=== PATIENT | male | born 1950 | race African-American/Black ===

== ENCOUNTER 2023-11-08 14:13 | Inpatient (IN) ==
--- NOTE | 2023-11-08 14:28 | Emergency Department Note ---
ED Visit Note I personally performed a history and examined the patient in conjunction with Dr. Horner. Additional information regarding the history, physical, assessment, and plan were discussed with supervising attending physician and are noted in their ED visit note. . Resident Activity Tracking Resident Involvement: Resident Care Provided Care Provided: [facility] Medicine
[2023-11-08] MEDS: SODIUM CHLORIDE 0.9% 500 ML IV ONE (15:16)
--- NOTE | 2023-11-08 15:16 | Emergency Department Note ---
Impression & Plan Dizziness, Near syncope, Acute hypotension, Bradycardia, Abnormal EKG ED Provider Note NAME: HANNAH SEGUNDO AGE: 73 SEX: M : 1950 ARRIVES VIA: Walk-In INFORMANT: Patient, the patient's family member ED PROVIDER(S): Davie Horner DO CHIEF COMPLAINT: Weakness HPI: The patient is a 73-year-old male who presented to the emergency department for an evaluation of weakness. The patient describes weakness and he feels that he may pass out. He feels lightheaded and dizzy. He notices this when his blood pressure drops. He is on multiple blood pressure medication. The patient states that has been taking his blood pressures appropriately. He denies having any dark stools or bloody stools. He denies having any chest pain or difficulty breathing. He has had no recent changes to his medications. He does live at home alone. He recently lost his significant other. ROS: See above HPI for pertinent positives & negatives. A total of 10 systems reviewed and were otherwise negative. PAST MEDICAL HISTORY: See Below PAST SURGICAL HISTORY: See Below FAMILY HISTORY: See Below SOCIAL HISTORY: See Below HOME MEDICATIONS: See Below ALLERGIES: See Below VITALS: See Below PHYSICAL EXAMINATION: GENERAL: Patient is awake alert in no acute distress patient is resting comfortably and showing no signs of anxiety EYES: The conjunctivae are clear. The pupils are round and reactive. EARS, NOSE, MOUTH AND THROAT: The nose is without any evidence of any deformity. NECK: The neck is nontender and supple. RESPIRATORY: Normal respiratory effort is noted there is no evidence of wheezing rhonchi or rales CARDIOVASCULAR: Regular rate and rhythm noted there no murmurs rubs or gallops normal S1 normal S2. GASTROINTESTINAL: The abdomen is soft. Abdomen is nontender. MUSCULOSKELETAL/EXTREMITIES: There is no evidence of gross deformity full range of motion is noted in the hips and shoulders. SKIN: There is no obvious evidence of any rash. There are no petechiae, pallor or cyanosis noted. NEUROLOGIC: Patient is awake alert and oriented x3 strength is symmetric patellar reflexes are 2+ bilaterally MEDICAL DECISION MAKING: The patient is a 73-year-old male who presented to the emergency department for an evaluation of near syncope and dizziness. The patient does have a history of cardiac issues in the past. He did also takes multiple blood pressure medications. I discussed the patient's laboratory and radiographic studies with him. He was treated with a small fluid bolus in the emergency department. He had no episodes of hypotension in the emergency department but he did have episodes of bradycardia with escape beats. I was concerned this may represent a problem with his beta-sergio. For this reason I discussed his condition with the on-call [facility] hospitalist. They have agreed to evaluate the patient in the emergency department for further management and disposition. Triage Nursing notes reviewed. Prior medical records reviewed Vital Signs: reviewed and remarkable for elevated blood pressure and bradycardia. Differential diagnosis: Infection, dehydration, metabolic abnormality, hypo/hyperglycemia, electrolyte disturbance, anemia, hypoxia, cardiac sources, intracerebral event, toxicologic, neurologic, as well as other pathologies. ER treatment provided: See below Diagnostics interpreted by me: ECG: EKG was obtained in the emergency department. My interpretation is sinus bradycardia 58 bpm. There is no ectopy. Inferior and lateral ST depressions were noted. This was compared to a tracing from November 27, 2017. The ST segment depressions are new compared to the previous tracing otherwise no changes were noted. Cardiac Monitoring: An order was placed for continuous cardiac monitoring. The monitor shows a rate of 58 bpm with ectopic atrial beats. Laboratory studies: As stated above and show below. Imaging studies: See below. Radiographic imaging was reviewed by myself Consultation(s): I discussed this case with Dr. Luna who is on-call for the [facility]. Past Med/Surg History Problem List Abnormal EKG (Acute) Bradycardia (Acute) Acute hypotension (Acute) Near syncope (Acute) Dizziness (Acute) Lung nodule seen on imaging study Nonsustained ventricular tachycardia Syncope Monoallelic mutation of SCN5A gene Dyspnea on exertion History of arterial bypass of lower extremity (Acute) PAD (peripheral artery disease) (Acute) Type 2 diabetes mellitus Dyslipidemia Hypertension S/P coronary artery stent placement CAD (coronary artery disease), [place] coronary artery Medical History Prostate cancer (~2010) "Rising PSA, presenting PSA 4.2. Clinical stage T1c Status post ultrasound-guided biopsies revealing adenocarcinoma, biopsy stage T2c [place] grade 3+4 Status post 8 months of hormonal suppression Status post completion of radiation therapy utilizing IMRT/IGRT completed 07/04/2011 received 7900 cGy" Social History Smoking Status: Never smoker Hx Alcohol Use: Yes Hx Substance Use: No Preferred Language: Yoruba Communication Ability: Effective Information Lead Required: No Beliefs That Will Affect Care: None Current Living Situation: Alone Feels Safe at Home: Yes Assistive Devices: None Allergies Allergies Allergy/AdvReac Type Severity Reaction Status Date / Time amiloride Allergy Nausea Verified 09/19/23 10:43 Home Meds Home Medications Medication Instructions Recorded Confirmed aspirin 81 mg tablet 81 mg PO DAILY 11/19/18 11/08/23 finasteride 5 mg tablet 5 mg PO DAILY 11/19/18 11/08/23 metformin 500 mg tablet 500 mg PO BID #180 tabs 11/19/18 11/08/23 tamsulosin 0.4 mg capsule 0.4 mg PO HS 11/19/18 11/08/23 cholecalciferol (vitamin D3) 50 2,000 units PO DAILY 12/12/18 11/08/23 mcg (2,000 unit) tablet cyanocobalamin (vitamin B-12) 500 500 mcg PO DAILY 08/11/20 11/08/23 mcg tablet pyridoxine (vitamin B6) 100 mg 100 mg PO DAILY 08/11/20 11/08/23 tablet potassium citrate 10 mEq (1,080 10 meq PO DAILY #60 tabs 02/14/21 11/08/23 mg) tablet,extended release sildenafil 100 mg tablet 100 mg PO DAILY PRN Erectile 02/14/21 11/08/23 Dysfunction gabapentin 100 mg capsule 200 mg PO TID 08/17/21 11/08/23 Previous Rx's Medication Instructions Recorded clopidogrel 75 mg tablet 75 mg PO QAM #90 tabs 11/23/22 nitroglycerin 0.4 mg sublingual 0.4 mg sublingual Q5M PRN chest 06/18/23 tablet pain #25 tabs atorvastatin 80 mg tablet 80 mg PO DAILY #90 tabs 08/12/23 metoprolol tartrate 100 mg tablet 100 mg PO BID #180 tabs 09/19/23 amlodipine 2.5 mg tablet 5 mg (2 x 2.5 mg) PO DAILY #90 tabs 10/21/23 Results & Data (ED) Vital Signs Vital Signs - 24 hr 11/08/23 14:16 11/08/23 14:50 11/08/23 15:00 Temperature Temperature Source Temporal Artery Scan Pulse Rate - Lying Pulse Rate - Sitting Pulse Rate - Standing Pulse Rate 54 L 55 L 54 L Pulse Rate [Left Finger] Pulse Rhythm Regular Pulse Rhythm [Left Finger] Pulse Strength [Left Finger] Respiratory Rate 16 16 Respiratory Effort / Characteristics Non-Labored Spontaneous Respiratory Depth Normal Respiratory Pattern Blood Pressure - Lying Blood Pressure - Sitting Blood Pressure- Standing Blood Pressure 117/62 Blood Pressure [Left Arm] Blood Pressure Mean 80 Blood Pressure Mean [Left Arm] Blood Pressure Position [Left Arm] Pulse Oximetry 98 98 Oxygen Delivery Method Room Air Room Air Sepsis Recent Fever Within 48 Hours No Sepsis New/Unexplained Change in Mental Status No Sepsis Action Taken by Nursing No Action Required 11/08/23 15:14 11/08/23 15:28 11/08/23 16:15 Temperature 36.8 C Temperature Source Oral Pulse Rate - Lying 56 L Pulse Rate - Sitting 59 L Pulse Rate - Standing 58 L Pulse Rate Pulse Rate [Left Finger] 70 Pulse Rhythm Pulse Rhythm [Left Finger] Pulse Strength [Left Finger] Respiratory Rate 18 Respiratory Effort / Characteristics Respiratory Depth Respiratory Pattern Blood Pressure - Lying 139/69 Blood Pressure - Sitting 129/61 Blood Pressure- Standing 136/66 Blood Pressure Blood Pressure [Left Arm] 150/74 H Blood Pressure Mean Blood Pressure Mean [Left Arm] 99 Blood Pressure Position [Left Arm] Pulse Oximetry 98 Oxygen Delivery Method Sepsis Recent Fever Within 48 Hours Sepsis New/Unexplained Change in Mental Status Sepsis Action Taken by Nursing 11/08/23 17:24 11/08/23 18:28 Temperature Temperature Source Pulse Rate - Lying Pulse Rate - Sitting Pulse Rate - Standing Pulse Rate 62 Pulse Rate [Left Finger] 76 Pulse Rhythm Pulse Rhythm [Left Finger] Regular Pulse Strength [Left Finger] Normal Respiratory Rate 16 Respiratory Effort / Characteristics Non-Labored Spontaneous Respiratory Depth Normal Respiratory Pattern Regular Blood Pressure - Lying Blood Pressure - Sitting Blood Pressure- Standing Blood Pressure Blood Pressure [Left Arm] 142/82 H Blood Pressure Mean Blood Pressure Mean [Left Arm] 102 Blood Pressure Position [Left Arm] Sitting Pulse Oximetry 98 Oxygen Delivery Method Room Air Sepsis Recent Fever Within 48 Hours Sepsis New/Unexplained Change in Mental Status Sepsis Action Taken by Long Term Medications Current Medication List: was personally reviewed by me Laboratory Data Attestation: I reviewed the patient's lab results. 11/08/23 15:05 11/08/23 15:05 Lab Results 11/08/23 11/08/23 Range/Units 15:05 15:50 WBC 4.66 L (4.8-10.8) K/ul RBC 4.19 L (4.70-6.10) M/uL Hgb 11.7 L (14.0-18.0) g/dl Hct 35.7 L (42.0-52.0) % MCV 85.2 (80.0-100.0) fL MCH 27.9 (25.0-34.0) pg MCHC 32.8 (32.0-36.0) g/dL RDW Std Deviation 46.4 H (36.4-46.3) fL RDW Coeff of Shantel 14.9 H (11.5-14.5) % Plt Count 150 (130-400) K/uL MPV 11.5 (9.4-12.4) fL Immature Gran % (Auto) 0.2 % Neut % (Auto) 45.8 % Lymph % (Auto) 38.4 % Davis % (Auto) 12.2 % Eos % (Auto) 2.8 % Baso % (Auto) 0.6 % Neut # (Auto) 2.13 (1.40-6.50) K/uL Lymph # (Auto) 1.79 (1.20-3.40) K/uL Davis # (Auto) 0.57 (0.11-0.59) K/uL Eos # (Auto) 0.13 (0.00-0.50) K/uL Baso # (Auto) 0.03 (0.00-0.20) K/uL Immature Gran # (Auto) 0.01 (0.01-0.20) K/uL Sodium 137 (136-145) mmol/L Potassium 4.0 (3.5-5.1) mmol/L Chloride 104 (98-107) mmol/L Carbon Dioxide 28 (21-32) mmol/L Anion Gap 5 (3-11) BUN 7 (6-23) mg/dl Creatinine 0.99 (0.6-1.4) mg/dl Est Cr Clr Drug Dosing 76.6 ml/min Est GFR ( Amer) 87.8 ml/min Est GFR (Non-Af Amer) 75.8 ml/min BUN/Creatinine Ratio 7.1 L (10-20) Glucose 133 H (70-99(Fasting)) mg/dl Lactate 1.5 (0.4-2.0) mmol/L Calcium 9.3 (8.6-10.3) mg/dl Magnesium 2.0 (1.7-2.4) mg/dl Total Bilirubin 0.8 (0.2-1.0) mg/dl AST 14 (13-39) U/L ALT 17 (7-52) U/L Alkaline Phosphatase 41 (34-104) U/L Troponin I High Sens 5.4 (0-20) pg/ml Total Protein 6.8 (6.0-8.3) gm/dl Albumin 3.8 (3.4-5.0) gm/dl Globulin 3.0 (2.5-4.0) gm/dl Albumin/Globulin Ratio 1.3 (0.9-2) Procalcitonin < 0.02 (0-0.5) ng/ml Urine Color Yellow Urine Appearance Clear (Clear) Urine pH 5.5 (4.5-7.5) Ur Specific [place] 1.013 (1.000-1.030) Urine Protein Negative (Negative) Urine Glucose (UA) Negative (Negative) Urine Ketones Negative (Negative) Urine Blood Negative (Negative) Urine Nitrite Negative (Negative) Urine Bilirubin Negative (Negative) Urine Urobilinogen Negative (Negative) Ur Leukocyte Esterase Negative (Negative) Administered Medications Discontinued Medications Sodium Chloride (Nss) 500 mls @ 999 mls/hr IV .Q31M ONE Stop: 11/08/23 15:27 Last Infusion: 11/08/23 15:30 Dose: Infused Documented By: Admin: 11/08/23 15:16 Dose: 999 mls/hr Documented By: LILIANA Imaging Data Attestation: I personally reviewed and interpreted this imaging study as follows: My Impression: 1 view chest x-ray was obtained in the emergency department. My interpretation is no free air or definite infiltrate, final report below. Radiologist's Impression: Chest X-Ray 11/08/23 14:45 XR chest 1V portable HISTORY: Sepsis workup COMPARISON: Chest CT 08/09/2023. FINDINGS: No pneumothorax. No pleural effusions. The cardiac silhouette remains mildly enlarged. There is mild interstitial thickening again noted which is likely chronic. No new focal lung consolidations to suggest a pneumonia. No evidence for pulmonary edema. The suspicious right upper lobe nodule is not well visualized on this study. IMPRESSION: 1. No focal lung consolidations to suggest a pneumonia. 2. Stable cardiomegaly and mild interstitial thickening. 3. The patient's known suspicious right upper lobe nodule is is not well visualized on this modality. ACT 112: Negative or not required by law. Electronically signed by: Heron Booker M.D. 11/08/2023 3:35 PM Discharge Plan Visit Data Chief Complaint: Hypotension Stated Complaint: HYPOTENSION ED Provider: Davie Horner ED Midlevel Provider: Comfort Vincent Discharge Problem: Dizziness, Near syncope, Acute hypotension, Bradycardia, Abnormal EKG Patient Disposition: Being Evaluated by Hospitalist Forms Stand Alone Forms: My [facility] Prescriptions Prescriptions: No Action clopidogrel 75 mg tablet 75 mg PO QAM Qty: 90 3RF nitroglycerin 0.4 mg tablet, sublingual 0.4 mg SL Q5M PRN (Reason: chest pain) Qty: 25 3RF atorvastatin 80 mg tablet 80 mg PO DAILY Qty: 90 3RF amlodipine 2.5 mg tablet 5 mg PO DAILY Qty: 90 3RF aspirin 81 mg tablet 81 mg PO DAILY finasteride 5 mg tablet 5 mg PO DAILY tamsulosin 0.4 mg capsule 0.4 mg PO HS metformin 500 mg tablet 500 mg PO BID Qty: 180 cholecalciferol (vitamin D3) 2,000 unit tablet 2,000 units PO DAILY cyanocobalamin (vitamin B-12) 500 mcg tablet 500 mcg PO DAILY pyridoxine (vitamin B6) 100 mg tablet 100 mg PO DAILY potassium citrate 10 mEq (1,080 mg) tablet extended release 10 meq PO DAILY Qty: 60 sildenafil 100 mg tablet 100 mg PO DAILY PRN (Reason: Erectile Dysfunction) gabapentin 100 mg capsule 200 mg PO TID metoprolol tartrate 100 mg tablet 100 mg PO BID Qty: 180 3RF Referrals Referrals: Gertrude Alvarez MD [Primary Care Provider] -
[2023-11-08 15:31] LABS: Basophils # (auto) 0.03 K/uL (0.00-0.20); Basophils % (auto) 0.6 %; Eosinophils # (auto) 0.13 K/uL (0.00-0.50); Eosinophils % (auto) 2.8 %; Hematocrit (blood only) 35.7 % (42.0-52.0); Hemoglobin 11.7 g/dl (14.0-18.0); Immature Granulocytes # (auto) 0.01 K/uL (0.01-0.20); Immature Granulocytes % (auto) 0.2 %; Lymphocytes # (auto) 1.79 K/uL (1.20-3.40); Lymphocytes % (auto) 38.4 %; Mean Corpuscular Hemoglobin 27.9 pg (25.0-34.0); Mean Corpuscular Hgb Conc 32.8 g/dL (32.0-36.0); Mean Corpuscular Volume 85.2 fL (80.0-100.0); Mean Platelet Volume 11.5 fL (9.4-12.4); Monocytes # (auto) 0.57 K/uL (0.11-0.59); Monocytes % (auto) 12.2 %; Neutrophils # (auto) 2.13 K/uL (1.40-6.50); Neutrophils % (auto) 45.8 %; Platelet Count 150 K/uL (130-400); RDW Coefficient of Variation 14.9 % (11.5-14.5); RDW Standard Deviation 46.4 fL (36.4-46.3); Red Blood Count 4.19 M/uL (4.70-6.10); White Blood Count 4.66 K/ul (4.8-10.8)
--- NOTE | 2023-11-08 15:34 | Electrocardiogram Report ---
Test Reason : Blood Pressure : */* mmHG Vent. Rate : 58 BPM Atrial Rate : 58 BPM P-R Int : 184 ms QRS Dur : 100 ms QT Int : 422 ms P-R-T Axes : 57 35 -4 degrees QTcB Int : 414 ms Sinus bradycardia Septal infarct , age undetermined Abnormal ECG When compared with ECG of 27-Jun-2023 11:14, (unconfirmed) Questionable change in QRS duration Septal infarct is now Present Confirmed by Davie Mcintosh ([id number]) on 11/08/2023 3:33:54 PM Referred By: Confirmed By: Davie Mcintosh
--- NOTE | 2023-11-08 15:37 | XRay Report ---
XR chest 1V portable HISTORY: Sepsis workup COMPARISON: Chest CT 08/09/2023. FINDINGS: No pneumothorax. No pleural effusions. The cardiac silhouette remains mildly enlarged. Ther e is mild interstitial thickening again noted which is likely chronic. No new focal lung consolidatio ns to suggest a pneumonia. No evidence for pulmonary edema. The suspicious right upper lobe nodule is not well visualized on this study. IMPRESSION: 1. No focal lung consolidations to suggest a pneumonia. 2. Stable cardiomegaly and mild interstitial thickening. 3. The patient's known suspicious right upper lobe nodule is is not well visualized on this modality. ACT 112: Negative or not required by law. Electronically signed by: Heron Booker M.D. 11/08/2023 3:35 PM
[2023-11-08 15:46] LABS: Albumin Globulin Ratio 1.3 (0.9-2); Albumin Level 3.8 gm/dl (3.4-5.0); BUN Creatinine Ratio 7.1 (10-20); Bilirubin,Total 0.8 mg/dl (0.2-1.0); Calcium 9.3 mg/dl (8.6-10.3); Creatinine Clr Calc Pharmacy 76.6 ml/min; Est GFR (African American) 87.8 ml/min; Est GFR (Non-African American) 75.8 ml/min; Total Protein 6.8 gm/dl (6.0-8.3)
[2023-11-08 15:53] LABS: Troponin I High Sensitivity 5.4 pg/ml (0-20)
[2023-11-08 16:11] LABS: Appearance Urine Clear (Clear); Bilirubin Urine Negative (Negative); Blood Urine Negative (Negative); Color Urine Yellow; Glucose Urine UA Negative (Negative); Ketones Urine Negative (Negative); Leukocyte Esterase Urine Negative (Negative); Nitrite Urine Negative (Negative); Protein Urine Negative (Negative); Specific Gravity Urine 1.013 (1.000-1.030); Urobilinogen Urine Negative (Negative); pH Urine 5.5 (4.5-7.5)
--- NOTE | 2023-11-08 17:49 | History & Physical Report ---
Date of Service November 08, 2023 Assessment & Plan (1) Syncope: Plan: Presyncope, hypotension Patient has had labile hypo-/hypertension as an outpatient. Small up titration of his medications going from amlodipine 2.5 to 5 mg, and shifting between 250-200 total daily dose of metoprolol have caused him to either be hypotensive less than 100, or hypertensive more than 180. 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 Cardiac cath 2018: PCI to mid LAD with 2 overlapping JAIME event monitor: NSVT up to 15 beats, rare junctional escape beats and brief junctional rhythm, no high-grade AV block. 2 episodes of lightheadedness which occurred during sinus bradycardia. Last echo 06/2023, EF 60 to 65%. Small pericardial effusion without evidence of tamponade 06/27/2023 amlodipine and metoprolol were dose reduced due to junctional bradycardia. (MTP 250mg TDD --> 100mg BID) and amlodipine 5mg -->2.5mg then back to 5 for hypertension Patient denies recent orthopnea except for in the past day While in the ER bradycardic, hypotensive which normalized following fluids. While on telemetry has had a intermittent junctional rhythm Troponin is normal Average blood pressure looks well controlled on his home log generally 110-130; however he is bradycardic in the 50s periodically and he has intermittently been in junctional rhythm while on ER telemetry.? Whether his hypotensive episodes are from transient bradycardia/junctional rhythm rather than hypertension especially given large swings with relatively small changes to his regimen. Will admit to PCU overnight, and review telemetry in the morning to see if any low blood pressure events correlate with bradycardia/junctional events metoprolol held for junctional rhythm/bradycardia. Cardiology consulted given complex history Patient has a history of SCN 5 gene abnormality which can be associated with isolated AV conduction defect/long QT/dilated cardiomyopathy/early repolarization. He does not show any signs [place] on EKG, last echo was without significant cardiomyopathy, he did not have any childhood cardiac problems, QT is not prolonged. This gene testing was part of a volunteer study and was not obtained for any particular symptomatology Also ATTR gene positive/increases for amyloidosis. Echo/07/16: Normal LV size and function. EF 60 to 65%. No regional wall motion abnormalities. Mild concentric LVH. No evidence of aortic stenosis. QRS voltage is not decreased on EKG. Not consistent with cardiac amyloidosis. Follow-up PCU overnight - [place] pending Patient is with uptrending blood pressure now in [id number]. Given labile re sponse previously rather than adding a long-acting hypertensive will add some Nitropaste. Metoprolol is heldas noted (2) S/P coronary artery stent placement: Plan: As noted (3) Type 2 diabetes mellitus: Plan: Switch to basal bolus insulin, DM 2 diet (4) Acute hypotension: (5) PAD (peripheral artery disease): Plan: No acute change Plan DVT prophylaxis: Lovenox Disposition: PCU CODE STATUS: DNR/DNI History of Present Illness Primary Care Provider: Gertrude Alvarez MD Tommie is a 73yo M who presented to the ER for dizziness and lightheadedness, and was hypotensive in the ER. Hypotension resolved with IVF and on recheck. "Gilbert" reports he is here for blood pressures issues. Has had labile blood pressure adjusted multiple times. Some frustration as he will be high at the PCP and at home, but then will small adjustments he will have episodes of BP <100 and worsening of orthostasis. With low BP 'felt weird, a little lightheaded'. Had been working at the time. Walking inside from the garage he got very out of breath and lightheaded. Checked his BP by home cuff which was 89/51. Ate and felt better, but then lightheadedness and 'weird feeling' returned this morning and BP was low again, came to the ER for evaluation. Per daughter and granddaughter has had intermittent BP <100 for a few weeks. Pt denies this but faily notes he has had low heart rate alerts from his apple watch, and low BPs at home. Denies orthostasis normally, eddy d1 episode of headache and lightheadedness after standing yesterday. Reports when the pressure drops he has a weird feeling in his chest which is not pain or pressure and his BP is low when he checks. BP at bedside now 180/95. Has 8 steps in his home. Normally does OK with these, but lately feels more weak at the top of the steps so he sits down and feels much better after a few mi nutes. Today when he sat down, then stood back up he field 'weird' and BP was 80-90s. Had genetic testing as part of a volunteer study. No cardiac hx that led to testing, no hx brugada No fevers, chillls, sweats. No n/v/d/c. No recent flu like symptoms. 250mg metoprolol reduced to 200mg TDD, and 5mg amloidpine --> 2.5mg. Medical History: Reviewed Medications: Reviewed Surgical History: Reviewed Family history: Reviewed Allergies: Reviewed Social History: REviewed. +occasional marijuana use. No daily ETOH or tobacco use Code Status: DNR Allergies Allergy/AdvReac Type Severity Reaction Status Date / Time amiloride Allergy Nausea Verified 09/19/23 10:43 Home Medications Medication Instructions Recorded Confirmed Type aspirin 81 mg tablet 81 mg PO DAILY 11/19/18 11/08/23 History finasteride 5 mg tablet 5 mg PO DAILY 11/19/18 11/08/23 History metformin 500 mg tablet 500 mg PO BID #180 tabs 11/19/18 11/08/23 History tamsulosin 0.4 mg capsule 0.4 mg PO HS 11/19/18 11/08/23 History cholecalciferol (vitamin D3) 50 2,000 units PO DAILY 12/12/18 11/08/23 History mcg (2,000 unit) tablet cyanocobalamin (vitamin B-12) 500 500 mcg PO DAILY 08/11/20 11/08/23 History mcg tablet pyridoxine (vitamin B6) 100 mg 100 mg PO DAILY 08/11/20 11/08/23 History tablet potassium citrate 10 mEq (1,080 10 meq PO DAILY #60 tabs 02/14/21 11/08/23 History mg) tablet,extended release sildenafil 100 mg tablet 100 mg PO DAILY PRN Erectile 02/14/21 11/08/23 History Dysfunction gabapentin 100 mg capsule 200 mg PO TID 08/17/21 11/08/23 History clopidogrel 75 mg tablet 75 mg PO QAM #90 tabs 11/23/22 11/08/23 Rx nitroglycerin 0.4 mg sublingual 0.4 mg sublingual Q5M PRN chest 06/18/23 11/08/23 Rx tablet pain #25 tabs atorvastatin 80 mg tablet 80 mg PO DAILY #90 tabs 08/12/23 11/08/23 Rx metoprolol tartrate 100 mg tablet 100 mg PO BID #180 tabs 09/19/23 11/08/23 Rx amlodipine 2.5 mg tablet 5 mg (2 x 2.5 mg) PO DAILY #90 tabs 10/21/23 11/08/23 Rx Past Med/Surg History Problem List Abnormal EKG (Acute) Bradycardia (Acute) Acute hypotension (Acute) Near syncope (Acute) Dizziness (Acute) Lung nodule seen on imaging study Nonsustained ventricular tachycardia Syncope Monoallelic mutation of SCN5A gene Dyspnea on exertion History of arterial bypass of lower extremity (Acute) PAD (peripheral artery disease) (Acute) Type 2 diabetes mellitus Dyslipidemia Hypertension S/P coronary artery stent placement CAD (coronary artery disease), jackson coronary artery Medical History Prostate cancer (~2010) "Rising PSA, presenting PSA 4.2. Clinical stage T1c Status post ultrasound-guided biopsies revealing adenocarcinoma, biopsy stage T2c Sargent grade 3+4 Status post 8 months of hormonal suppression Status post completion of radiation therapy utilizing IMRT/IGRT completed 07/04/2011 received 7900 cGy" Social History Smoking Status: Never smoker Hx Alcohol Use: Yes Hx Substance Use: No Preferred Language: Kazakh Communication Ability: Effective Rehabilitation Therapy Aide Required: No Beliefs That Will Affect Care: None Current Living Situation: Alone Feels Safe at Home: Yes Assistive Devices: None Physical Exam Physical Exam: General: A&Ox3. NAD. Cooperative. HEENT: Atraumatic, normocephalic. PERLAA. EOM intact without nystagmus, hearing grossly intact Pulm: CTAB A&P. -wheezes, -rales, -rhonchi. Symmetrical chest rise. No increased work of breathing. No respiratory distress. Cardiac: RRR, soft sm, -rg Radial pulses intact and symmetrical. Abdominal: Nontender, nondistended, soft. BS present. Ext: no edema Results & Data Results & Data Vital Signs (Past 12 Hours) Vital Signs Temp Pulse Pulse Resp BP BP Pulse Ox 11/08/23 17:24 76 16 142/82 H 98 11/08/23 16:15 70 18 150/74 H 98 11/08/23 15:28 36.8 C 11/08/23 15:00 54 L 16 98 11/08/23 14:50 55 L 11/08/23 14:16 54 L 16 117/62 98 O2 Del Method 11/08/23 17:24 Room Air 11/08/23 16:15 11/08/23 15:28 11/08/23 15:00 Room Air 11/08/23 14:50 11/08/23 14:16 Room Air PG Care Time/CCT Total # of Minutes Spent Total Time Spent with Patient: Total time spent is greater than 50% in coordination of care (as documented) at patient's floor/unit and/or counseling patient: Coding Level of Care Code 56937 INT INP/OBS CARE 3/75MIN Diagnoses Syncope R55 S/P coronary artery stent placement Z95.5 Type 2 diabetes mellitus E11.9 Acute hypotension I95.9 PAD (peripheral artery disease) I73.9
[2023-11-08] MEDS ORDERED: GLUCAGON FOR INJ 1 MG VIAL SQ PRN (18:53)
[2023-11-08] MEDS ORDERED: DEXTROSE 50% 50 ML SYRINGE IV PRN (18:53)
[2023-11-08] MEDS ORDERED: CARBOHYDRATES FOR HYPOGLYCEMIA PO PRN (18:53)
[2023-11-08] MEDS ORDERED: GLUCOSE 10 TAB/TUBE PO PRN (18:53)
[2023-11-08] MEDS ORDERED: GLUCOSE 40% GEL 15 GM TUBE PO PRN (18:53)
[2023-11-08] MEDS: NITROGLYCERIN 2% OINTMENT 30GM TUBE EXT SCH (19:44)
[2023-11-08] MEDS ORDERED: ATROPINE SULFATE 0.1 MG/ML 10ML SYR IV PRN (21:13)
[2023-11-08] MEDS ORDERED: NITROGLYCERIN SL 0.4 MG/TAB TAB SL PRN (21:13)
[2023-11-08] MEDS ORDERED: NON-FORMULARY MEDICATION (Sildenafil 100 mg tablet) PO PRN (21:13)
[2023-11-08] MEDS: INSULIN ASPART PER UNIT CHARGE SC SCH (21:21)
[2023-11-08] MEDS: CALCIUM GLUCONATE 1,000 MG/60 ML BAG IV STA (21:49)
[2023-11-08] MEDS: TAMSULOSIN HCL 0.4 MG CAP PO SCH (21:50)
[2023-11-08] MEDS: GABAPENTIN 100 MG CAP PO SCH (21:50)
--- OUTSIDE RECORDS SUMMARY | 2023-11-08 22:47 | External Medical Summary | Summary of Care ---
Author Name Unknown Organization [facility] Address [address] [place] [address] Phone [phone] Care Team Providers Care All Source Intelligence Name Role Phone Gertrude Alvarez MD Primary Care Prov ider Encounter Details Date Type Department Care Team (Late st Contact Info) Description 09/12/2023 Telephone Clinical [facility], [place] [address] [facility] [address] [place] [address] Rea Jamison, MICHAEL Allergies Active Allergy Reactions Criticality Noted Date Comments Hydrochlorothiazide W-Amiloride Nausea/vomiting 09/30/2012 documented as of this encounter (statuses as of 10/02/2023) Medications Medication Sig Dispensed Refills Start Date End Date Status ASPIRIN 81 MG OR TABS 1 TABLET DAILY 30 0 03/20/2004 Active VITAMIN B-6 100 MG PO TABSIndications:Fami ly history of GI malignancy,Personal history of colonic polyps,Intestinal bypass or anastomosis status,Follow-up examination, following other surgery Take by mouth daily . Active VITAMIN B-12 1000 MCG PO TABSIndications:Fami ly history of GI malignancy,Personal history of colonic polyps,Intestinal bypass or anastomosis status,Follow-up examination, following other surgery Take by mouth daily . Active VITAMIN D 1000 UNIT PO TABS Take by mouth 2,000 Units daily . Active metFORMIN (GLUCOPHAGE) 500 MG Tablet Take 500 mg by mouth 2 times a day with morning and evening meals. 09/28/2015 Active potassium citrate ER (UROCIT-K) 10 MEQ (1080 MG) TBCR Take by mouth 10 mEq daily . 05/05/2016 Active metoprolol tartrate (LOPRESSOR) 25 MG Tablet Take by mouth 125 mg 2 times a day . Active tamsulosin (FLOMAX) 0.4 MG CapsuleIndications:t akes at lunch Take by mouth 0.4 mg daily . 1 07/01/2017 Active amLODIPine (NORVASC) 5 MG TabletIndications:ta kes at night Take 5 mg by mouth daily. Indications: takes at night Active clopidogrel (PLAVIX) 75 MG Tablet Take 75 mg by mouth daily. Active nitroglycerin (NITROSTAT) 0.[address] 0.4 mg under the tongue every 5 minutes as needed for Pain, Chest. Active Finasteride 5 MG Oral Tablet (Proscar) 03/19/2021 Active Sildenafil Citrate 100 MG Oral Tablet TAKE 1 TABLET BY MOUTH ONCE DAILY NEEDED 1 HOUR BEFORE SEXUAL ACTIVITY 01/27/2021 Active FreeStyle Lite Test In Vitro Strip USE TO TEST BLOOD SUGAR 3 TIMES A DAY 06/01/2021 Active Atorvastatin Calcium 80 MG Oral Tablet (Lipitor) Take by mouth 80 mg in the morning. 04/26/2021 Active Famotidine 20 MG Oral Tablet (Pepcid)Indications: Gastritis without bleeding, unspecified chronicity, unspecified gastritis type Take by mouth 1 Tablet in the morning. 90 Tablet 3 08/10/2021 Active Gabapentin 100 MG Oral Capsule (Neurontin) Take 2 Capsules by mouth in the morning and 2 Capsules at noon and 2 Capsules before bedtime. 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 Increased risk for Hereditary Transthyretin Amyloidosis (ATTR). Please click the link below for a brief summary of current clinical management recommendations for hereditary transthyretin (TTR) amyloidosis TTR At risk for peripheral neuropathy 06/05/2022 Overview: Please click the link below for a brief summary of current clinical management recommendations for hereditary transthyretin (TTR) amyloidosis TTR Malignant neoplasm of lateral wall of bladder Malignant neoplasm of prostate 08/10/2021 Monoallelic mutation of SCN5A gene 06/29/2020 Overview: pathogenic SCN5A gene variant (c.673 C>T, p.R225W) detected via [employer]. Increased risk for Inherited Arrhythmias. Please click the link below for a brief summary of current clinical management recommendations for inherited arrhythmias. SCN5A Type 2 diabetes mellitus with circulatory disord er 11/23/2015 Atherosclerosis of [place] of right lower extremity with intermittent claudication 11/23/2015 ADVANCE DIRECTIVE INFORMATION 11/03/2009 Overview: No, Advance Directive brochure offered , patient declined. S/P femoral-popliteal bypass surgery 09/23/2003 BENIGN NEOPLASM LG BOWEL 12/23/2002 infundibulofolliculitis with 2ndary changes 08/24 Uveitis 06/03/2001 FAMILY HX-GI MALIGNANCY 06/03/2001 Benign prostatic hyperplasia 06/03/2001 Overview: ICD-10 update of inactive term ICD-10 update of inactive term FAM HX-DIABETES MELLITUS 06/03/2001 documented as of this encounter (statuses as of 10/02/2023) Resolved Problems Problem Noted Date Diagnosed Date Resolved Date Special screening for malign ant neoplasms, colon 06/03/2001 06/02/2008 Overview: Resolved per Screening Diagnosis Protocol #6 documented as of this encounter (statuses as of 10/02/2023) Immunizations Name Administration Dates Next Due COVID-19 mRNA, LNP-s, No Pre serve, 2-Dose Series ([employer]) 12/22/2020,06/08/2020,05/11/2020 COVID-19, LNP-s, No Preserve , Lorne-sucrose, Ages 12+ ([employer]) 07/11/2021 Covid-19, Mrna, Lnp-s, Pf, B ivalent, 30 Mcg, IM, 12 yrs and above (Pfizer) 02/13/2022 documented as of this encounter Social History Tobacco Use Types Packs/Day Years Used Date Smoking Tobacco: Former Cigarettes Q uit: 03/25/2001 Smokeless Tobacco: Never Alcohol Use Standard Drinks/Week Comments Yes 0 (1 standard drink = 0.6 oz pur e alcohol) occasionally Utilities Answer Date Recorded Do you have trouble paying y our heating, water, or electric bill? (Adult - for ages 18 years and over) Not on file 09/10/2023 Is your family able to pay t he heat, water, or electric bill? (Household - for ages 0-17 years) Not on file 09/10/2023 Does your family have access to good internet? (Household - for ages 0-17 years) Not on file 09/10/2023 Social Connections Answer Date Recorded How often do you feel lonely or isolated from those around you? (Adult - for ages 18 years and over) Not on file 09/10/2023 Sex and Gender Information Value Date Recorded Sex Assigned at Male 08/10/2021 9:26 AM EDT Gender Identity Male 08/10/2021 9:26 AM EDT Sexual Orientation Straight 08/10/2021 9: 26 AM EDT Job Start Date Occupation Industry Not on file Not on file Not on file documented as of this encounter Plan of Treatment Upcoming Encounters Date Type Department Care Team (Late st Contact Info) Description 12/25/2023 8:40 AM EDT Office Visit Neurology [facility] [place] [address] [place] [id number] Ana Acosta PA-C [address] [place] [id number] Health Maintenance Due Date Last Done Comments Depression Screening 1963 Diabetic Eye Exam 1969 Diabetic Foot Exam 1969 Hepatitis C Screening 1969 DTaP,Tdap,and Td Vaccines (1 - Tdap) 1970 Cologuard 02/09/1996 Fecal Occult Blood Test 02/09/1996 Sigmoidoscopy 03/15/2008 03/15/2003 Colonoscopy 04/30/2020 04/30/2019, 08/2019, 05/09/2017, Additional history exists Colorectal Cancer Screening 04/30/2020 Albumin/Creatinine Ratio 02/02/2022 02/02/2021, 04/26 COVID-19 Vaccine (2022- season) 2023 03/20/2023, 02/13/2022, 07/11/2021, Additional history exists Influenza Vaccine (FLU shot) (#1) 2023 HbA1c 12/04/2023 06/03/2023, 10/0 07/2022, 09/07/2022, Additional history exists GFR 06/02/2024 06/03/2023, 04/26, 05/15/2023, Additional history exists Pneumococcal Vaccine: 65+ Years Completed 11/13/2018, 02/09/2016, 06/18/2005 RETIRED - COLONOSCOPY-ANNUAL AGES 18-100 Discontinued 04/30/2019, 04/30/2019, 05/09/2017, Additional history exists AAA Screening Completed 12/04/2022, 11/23, 02/07/2022, Additional history exists Zoster Vaccines Completed 03/11/2023, 09/20/2022 HPV (Gardasil) Vaccine Aged Out No lo nger eligible based on patient's age to complete this topic Hepatitis B Vaccine Aged Out No longe r eligible based on patient's age to complete this topic MENINGOCOCCAL (MENACTRA/MENVEO) Aged Out No longer eligible based on patient's age to complete this topic documented as of this encounter Medical Devices Not on filedocumented as of this encounter Care Teams All Source Intelligence Relationship Specialty Start Date End Date Getrrude Alvarez MD [address] [place] [id number] PCP - General Family Medicine 11/23/15 documented as of this encounter
[2023-11-09 06:52] LABS: Basophils # (auto) 0.02 K/uL (0.00-0.20); Basophils % (auto) 0.4 %; Eosinophils # (auto) 0.09 K/uL (0.00-0.50); Eosinophils % (auto) 1.7 %; Hematocrit (blood only) 35.4 % (42.0-52.0); Immature Granulocytes # (auto) 0.01 K/uL (0.01-0.20); Immature Granulocytes % (auto) 0.2 %; Lymphocytes # (auto) 1.33 K/uL (1.20-3.40); Lymphocytes % (auto) 25.8 %; Mean Corpuscular Hgb Conc 33.9 g/dL (32.0-36.0); Mean Corpuscular Volume 82.5 fL (80.0-100.0); Mean Platelet Volume 11.2 fL (9.4-12.4); Monocytes # (auto) 0.44 K/uL (0.11-0.59); Monocytes % (auto) 8.5 %; Neutrophils # (auto) 3.26 K/uL (1.40-6.50); Neutrophils % (auto) 63.4 %; Platelet Count 145 K/uL (130-400); RDW Coefficient of Variation 14.6 % (11.5-14.5); RDW Standard Deviation 43.7 fL (36.4-46.3); Red Blood Count 4.29 M/uL (4.70-6.10); White Blood Count 5.15 K/ul (4.8-10.8)
[2023-11-09 07:31] LABS: BUN Creatinine Ratio 8.3 (10-20); Calcium 9.1 mg/dl (8.6-10.3); Creatinine Clr Calc Pharmacy 89.4 ml/min; Est GFR (African American) 101.4 ml/min; Est GFR (Non-African American) 87.5 ml/min; Potassium 4.3 mmol/L (3.5-5.1)
[2023-11-09] MEDS: ATORVASTATIN 40 MG TAB PO SCH (08:04)
[2023-11-09] MEDS: ASPIRIN 81 MG ECTAB PO SCH (08:04)
[2023-11-09] MEDS: PYRIDOXINE HCL 50 MG TAB PO SCH (08:04)
[2023-11-09] MEDS: POTASSIUM CITRATE 10 MEQ TAB PO SCH (08:04)
[2023-11-09] MEDS: CLOPIDOGREL BISULFATE 75 MG TAB PO SCH (08:04)
[2023-11-09] MEDS: CHOLECALCIFEROL 25 MCG (1000 UNITS) TAB PO SCH (08:04)
[2023-11-09] MEDS: CYANOCOBALAMIN (B-12) 500 MCG TABLET PO SCH (08:05)
[2023-11-09] MEDS: FINASTERIDE 5 MG TAB PO SCH (08:05)
[2023-11-09] MEDS: amLODIPine BESYLATE 5 MG TAB PO SCH (08:05)
[2023-11-09] MEDS: ENOXAPARIN INJ 40 MG/0.4 ML SYR SQ SCH (08:06)
--- NOTE | 2023-11-09 11:43 | Hospitalist Progress Note ---
Date of Service November 09, 2023 Assessment & Plan (1) Syncope: Plan: Presyncope, hypotension Patient has had labile hypo-/hypertension as an outpatient. Patient is now on amlodipine 5 mg with decent control of blood pressure His metoprolol has been on hold because of bradycardia as well as hypotension/syncope He was seen in consultation by cardiology today Cardiology recommends switching from metoprolol to Coreg 6.25 mg twice daily. Will observe the patient on this current regimen of amlodipine 5 mg and Coreg 6.25 Mg Encouraged the patient to ambulate to see what the blood pressure and heart rate does. If everything goes well, plan to discharge him tomorrow (2) S/P coronary artery stent placement: Plan: Cardiac catheterization 2018: PCI to mid LAD with overlapping JAIME Continue aspirin, statin, Plavix Switch from metoprolol to Coreg (3) Type 2 diabetes mellitus: Plan: Switch to basal bolus insulin, DM 2 diet (4) Acute hypotension: (5) PAD (peripheral artery disease): Plan: No acute change Plan DVT prophylaxis: Lovenox Disposition: PCU CODE STATUS: DNR/DNI Likely discharge to home tomorrow Admission and Anticipated Discharge Date Admission Date: November 08, 2023 Subjective Patient says that he is feeling well at this time. Denies chest pain or shortness of breath. Review of Systems Review of Systems: All systems reviewed & are unremarkable except as noted in Subjective Physical Exam Physical Exam: General: Awake, conversant Heart: S1, S2/regular rate and rhythm, no murmur rubs or gallops Lungs: Clear to auscultation bilaterally. Normal effort Abdomen: Soft/nontender/nondistended. No hepatosplenomegaly Extremities: No clubbing/cyanosis. No edema Behavior: Appropriate, cooperative Results & Data Results & Data Vital Signs (Past 12 Hours) Vital Signs Temp Pulse Resp BP Pulse Ox O2 Del Method 11/09/23 07:59 36.7 C 61 18 142/73 H 98 Room Air 11/09/23 03:35 36.6 C 56 L 17 151/64 H 98 Room Air 11/08/23 23:45 36.6 C 53 L 17 153/67 H 97 Room Air PG Care Time/CCT Total # of Minutes Spent Total Time Spent with Patient: Total time spent is greater than 50% in coordination of care (as documented) at patient's floor/unit and/or counseling patient: Coding Level of Care Code 49703 SUB INP/OBS CARE 2/35MIN Diagnoses Syncope R55 S/P coronary artery stent placement Z95.5 Type 2 diabetes mellitus E11.9 Acute hypotension I95.9 PAD (peripheral artery disease) I73.9
[2023-11-09] MEDS: carvediloL 6.25 MG TAB PO SCH (12:04)
--- NOTE | 2023-11-09 14:07 | Cardiology Consultation ---
Date of Consultation November 09, 2023 Assessment & Plan (1) Bradycardia: (2) Acute hypotension: (3) Labile hypertension: (4) CAD (coronary artery disease), [place] coronary artery: (5) S/P coronary artery stent placement: (6) Monoallelic mutation of SCN5A gene: Plan 73-year-old male with complex cardiac history which includes labile hypertension complicated by episodes of bradycardia and relative hypotension. It appears he had another of these abrupt episodes of bradycardia/hypotension prompting ER visit/hospitalization currently. Despite withholding his metoprolol overnight, his heart rate remains bradycardic, therefore would not favor reinstituting more than a minimal dose of beta-sergio at this time. His blood pressure has been elevated, could increase amlodipine but at higher doses there is a risk of vasodilation/leg edema, in his case to keep his regimen simple and add back some beta-sergio while further afterload reducing recommend initiation of carvedilol 6.25 mg twice daily, titrated upward as able based on heart rate and blood pressure. SCN5 gene abnormalities to have increased risk for ventricular dysrhythmias, however neither beta-blockers nor specific antiarrhythmics have proven of effective and he has not demonstrated complex ventricular dysrhythmias up to this point. Since his symptomatic episodes seem more related to bradycardia and did not seem related to dysrhythmia, hope to minimize his beta-sergio dose while continuing to address BP by instituting carvedilol. Continued observation on telemetry overnight, possible discharge tomorrow. Follow-up will be with Dr. Jansen. History of Present Illness Reason for Consultation: junctional bradycardia, hypotension Requesting Physician: Curt Castillo MD Attending Physician: Curt Castillo MD History of Present Illness 73 man with multiple vascular risk factors/known vasculopathy and complex cardiac history who has labile hypertension but more recently has had recurrent episodes of abrupt onset bradycardia with associated hypotension, admitted 11/08/2023 after an episode of presyncope associated with hypotension. Patient is routinely followed by Dr. Jansen. Cardiac history includes: 1. CAD. LAD PCI 2017. Significant remaining borderline/mildly occlusive disease (see cardiology office visit notes for details). Negative nuclear stress 2021. 2. PAD. Femoropopliteal bypass 2003, significant remaining peripheral arterial disease (see office notes). 3. SCN5A gene abnormality, normal QT interval, no evidence of Brugada ECG pattern, and no major arrhythmias on ambulatory monitoring (occasional NSVT). 4. Hypertension, difficult to control. 5. Dyslipidemia 6. Longstanding atypical chest discomfort, times felt to be GI etiology. 7. Recurrent syncope, no definite correlation with dysrhythmia but episodes of lightheadedness were noted during sinus bradycardia while on ambulatory monitoring. Yesterday, he reported the ER due to lightheadedness with periods of presyncope, noted low BP at home and apparently confirmed in the ER (noted on H&P, but the lowest BP in the ER note was 117/62 mmHg). ER telemetry showed sinus bradycardia with periods of junctional bradycardia. BP normalized after IV fl uid and he felt better. ECG on admission showed sinus bradycardia 58 bpm, old septal infarct, inferior T wave inversions which were new compared with June 2023 study. Troponin was normal at 5.4. Telemetry overnight showed sinus bradycardia with PACs, rate in the 50-60 bpm range. No change in heart rate overnight off beta-blockers, BP mild to moderately hypertensive overnight (treated with addition of Nitropaste). He felt well at the time of my evaluation this morning. Denied chest pain, dyspnea, or lightheadedness today. Allergies Allergy/AdvReac Type Severity Reaction Status Date / Time amiloride Allergy Nausea Verified 09/19/23 10:43 Home Medications Medication Instructions Recorded Confirmed Type aspirin 81 mg tablet 81 mg PO DAILY 11/19/18 11/08/23 History finasteride 5 mg tablet 5 mg PO DAILY 11/19/18 11/08/23 History metformin 500 mg tablet 500 mg PO BID #180 tabs 11/19/18 11/08/23 History tamsulosin 0.4 mg capsule 0.4 mg PO HS 11/19/18 11/08/23 History cholecalciferol (vitamin D3) 50 2,000 units PO DAILY 12/12/18 11/08/23 History mcg (2,000 unit) tablet cyanocobalamin (vitamin B-12) 500 500 mcg PO DAILY 08/11/20 11/08/23 History mcg tablet pyridoxine (vitamin B6) 100 mg 100 mg PO DAILY 08/11/20 11/08/23 History tablet potassium citrate 10 mEq (1,080 10 meq PO DAILY #60 tabs 02/14/21 11/08/23 History mg) tablet,extended release sildenafil 100 mg tablet 100 mg PO DAILY PRN Erectile 02/14/21 11/08/23 History Dysfunction gabapentin 100 mg capsule 200 mg PO TID 08/17/21 11/08/23 History clopidogrel 75 mg tablet 75 mg PO QAM #90 tabs 11/23/22 11/08/23 Rx nitroglycerin 0.4 mg sublingual 0.4 mg sublingual Q5M PRN chest 06/18/23 11/08/23 Rx tablet pain #25 tabs atorvastatin 80 mg tablet 80 mg PO DAILY #90 tabs 08/12/23 11/08/23 Rx metoprolol tartrate 100 mg tablet 100 mg PO BID #180 tabs 09/19/23 11/08/23 Rx amlodipine 2.5 mg tablet 5 mg (2 x 2.5 mg) PO DAILY #90 tabs 10/21/23 11/08/23 Rx Patient History Medical History (Updated 11/09/23 @ 14:02 by Remy Craig MD) Prostate cancer (~2010) "Rising PSA, presenting PSA 4.2. Clinical stage T1c Status post ultrasound-guided biopsies revealing adenocarcinoma, biopsy stage T2c Tyro grade 3+4 Status post 8 months of hormonal suppression Status post completion of radiation therapy utilizing IMRT/IGRT completed 07/04/2011 received 7900 cGy" Social History Smoking Status: Never smoker Hx Alcohol Use: No Hx Substance Use: No Preferred Language: Monegasque Communication Ability: Effective Judicial Clerk Required: No Beliefs That Will Affect Care: None Current Living Situation: Alone Feels Safe at Home: Yes Safety Concerns: Feels Safe At This Time Assistive Devices: Denture - Upper and Glasses Physical Exam Physical Exam: Adult black male in no distress. Peak BP overnight 202/90 mmHg, BP this morning 142/73 mmHg. Pulse 56 bpm and regular. HEENT: unremarkable. Neck: JVP at the clavicle at 90 degrees, no carotid bruits. Lungs: clear. Cardiac: regular rhythm, normal S1-2, no murmur. Abdomen: benign. Extremities: no edema, pulses intact. Neurologic: normal affect and conversation, nonfocal. Results & Data Vital Signs (Past 12 Hours) Vital Signs Temp Pulse Resp BP Pulse Ox O2 Del Method 11/09/23 11:56 97.9 F 66 18 143/69 H 98 Room Air 11/09/23 07:59 98.1 F 61 18 142/73 H 98 Room Air 11/09/23 03:35 97.9 F 56 L 17 151/64 H 98 Room Air Laboratory Results Normal electrolytes, BUN 7, creatinine 0.84. Normal troponin. Diagnostic Findings ECG as noted in HPI. Chest x-ray with stable cardiomegaly and mild interstitial thickening. Echocardiogram June 2023 showed EF 6065% with mild LVH and mild mitral regurgitation as well as a very small pericardial effusion. PG Care Time/CCT Total # of Minutes Spent Total Time Spent with Patient: Total time spent is greater than 50% in coordination of care (as documented) at patient's floor/unit and/or counseling patient: Coding Level of Care Code 57568 OFFICE CONSULT LVL 55M Diagnoses Bradycardia R00.1 Acute hypotension I95.9 Labile hypertension R09.89 CAD (coronary artery disease), [place] coronary artery I25.10 S/P coronary artery stent placement Z95.5 Monoallelic mutation of SCN5A gene Z15.89
[2023-11-10 07:19] LABS: BUN Creatinine Ratio 8.8 (10-20); Calcium 9.2 mg/dl (8.6-10.3); Creatinine Clr Calc Pharmacy 82.5 ml/min; Est GFR (African American) 97.2 ml/min; Est GFR (Non-African American) 83.9 ml/min; Potassium 4.1 mmol/L (3.5-5.1)
[2023-11-10 07:32] LABS: Basophils # (auto) 0.01 K/uL (0.00-0.20); Basophils % (auto) 0.2 %; Eosinophils # (auto) 0.08 K/uL (0.00-0.50); Eosinophils % (auto) 1.7 %; Hematocrit (blood only) 38.3 % (42.0-52.0); Hemoglobin 12.7 g/dl (14.0-18.0); Immature Granulocytes # (auto) 0.01 K/uL (0.01-0.20); Immature Granulocytes % (auto) 0.2 %; Lymphocytes % (auto) 31.8 %; Mean Corpuscular Hemoglobin 27.9 pg (25.0-34.0); Mean Corpuscular Hgb Conc 33.2 g/dL (32.0-36.0); Mean Platelet Volume 11.7 fL (9.4-12.4); Monocytes # (auto) 0.55 K/uL (0.11-0.59); Monocytes % (auto) 11.7 %; Neutrophils # (auto) 2.56 K/uL (1.40-6.50); Neutrophils % (auto) 54.4 %; Platelet Count 160 K/uL (130-400); RDW Coefficient of Variation 14.7 % (11.5-14.5); RDW Standard Deviation 44.9 fL (36.4-46.3); Red Blood Count 4.56 M/uL (4.70-6.10); White Blood Count 4.71 K/ul (4.8-10.8)
--- NOTE | 2023-11-10 09:56 | Cardiology Progress Note ---
Date of Service November 10, 2023 Assessment & Plan (1) Labile hypertension: (2) Bradycardia: (3) Acute hypotension: (4) CAD (coronary artery disease), [place] coronary artery: (5) S/P coronary artery stent placement: (6) Monoallelic mutation of SCN5A gene: Plan Still moderately hypotensive and had remained borderline bradycardic until this morning, however his heart rate did diamond picker when he was walking. Given his history of coronary disease in order to reduce the risk of anginal symptoms, would continue to gradually titrate carvedilol upward to modestly blunt his chronotropic response to activity while using the minimum effective dose of beta-sergio to avoid bradycardia at rest. Would recommend increasing carvedilol to 12.5 mg this morning, depending upon heart rate and blood pressure through the day could titrate upward further if necessary. If BP remains significantly elevated later today, could also increase amlodipine to 5 mg twice daily (would not need to wait until this evening to give a second dose, but would wait at least until after noon to assess the efficacy of his increased carvedilol dose). No dysrhythmias noted. Admission and Anticipated Discharge Date Admission Date: November 08, 2023 Subjective Patient was feeling very emotional this morning and was tearful, but stated that it "was not physical". He did feel some "lightness" in his chest when walking 1 time, but he has walked about the corridors multiple other times with no dyspnea, angina, or palpitations. Blood pressure has remained moderately hypertensive, heart rate generally in the 60 bpm range but did transiently increase to 120 bpm when he was walking this morning. Aside from his unspecified emotional distress (he did not elaborate), no somatic complaints at the time of my evaluation this morning. Physical Exam Physical Exam: No distress. BP 170/79 mmHg (SBP 130863 range overnight). Pulse 64 bpm and regular. HEENT: unremarkable. Neck: JVP at the clavicle at 90 degrees, no carotid bruits. Lungs: clear. Cardiac: regular rhythm, normal S1-2, no murmur. Abdomen: benign. Extremities: no edema, pulses intact. Neurologic: Tearful affect, answers questions appropriately, grossly nonfocal. Results & Data Vital Signs (Past 12 Hours) Vital Signs Temp Pulse Pulse Resp BP Pulse Ox O2 Del Method 11/10/23 07:26 98.1 F 64 18 174/79 H 98 Room Air 11/10/23 04:10 98.4 F 62 17 144/79 H 97 Room Air 11/10/23 00:12 97.5 F L 57 L 17 166/81 H 98 Room Air 11/09/23 23:10 57 L Laboratory Results Normal electrolytes, BUN 8, creatinine 0.91. PG Care Time/CCT Total # of Minutes Spent Total Time Spent with Patient: Total time spent is greater than 50% in coordination of care (as documented) at patient's floor/unit and/or counseling patient: Coding Level of Care Code 32333 SUB INP/OBS CARE 2/35MIN Diagnoses Labile hypertension R09.89 Bradycardia R00.1 Acute hypotension I95.9 CAD (coronary artery disease), [place] coronary artery I25.10 S/P coronary artery stent placement Z95.5 Monoallelic mutation of SCN5A gene Z15.89
[2023-11-10] MEDS: carvediloL 6.25 MG TAB PO ONE (10:12)
--- NOTE | 2023-11-10 13:35 | Hospitalist Progress Note ---
Date of Service November 10, 2023 Assessment & Plan (1) Syncope: Plan: Presyncope, hypotension Patient has had labile hypo-/hypertension as an outpatient. His metoprolol has been on hold because of bradycardia as well as hypotension/syncope He was seen in consultation by cardiology Switched him from metoprolol to Coreg. Increased the dose of Coreg to 12.5 this morning Noticed that his blood pressure is still on the high side Increase the dose of amlodipine from 5 to 10 mg as well Will monitor him overnight (2) S/P coronary artery stent placement: Plan: Cardiac catheterization 2018: PCI to mid LAD with overlapping JAIME Continue aspirin, statin, Plavix Switch from metoprolol to Coreg (3) Type 2 diabetes mellitus: Plan: Switch to basal bolus insulin, DM 2 diet (4) Acute hypotension: (5) PAD (peripheral artery disease): Plan: No acute change Plan DVT prophylaxis: Lovenox Disposition: PCU CODE STATUS: DNR/DNI Likely discharge to home tomorrow Admission and Anticipated Discharge Date Admission Date: November 08, 2023 Subjective Patient feels well. Denies chest pain or shortness of breath. He has been walking around the room and the hallway. Review of Systems Review of Systems: All systems reviewed & are unremarkable except as noted in Subjective Physical Exam Physical Exam: General: Awake, conversant Heart: S1, S2/regular rate and rhythm, no murmur rubs or gallops Lungs: Clear to auscultation bilaterally. Normal effort Abdomen: Soft/nontender/nondistended. No hepatosplenomegaly Extremities: No clubbing/cyanosis. No edema Behavior: Appropriate, cooperative Results & Data Results & Data Vital Signs (Past 12 Hours) Vital Signs Temp Pulse Pulse Resp BP Pulse Ox O2 Del Method 11/10/23 11:23 36.8 C 65 18 152/77 H 97 Room Air 11/10/23 11:00 57 L 11/10/23 07:26 36.7 C 64 18 174/79 H 98 Room Air 11/10/23 04:10 36.9 C 62 17 144/79 H 97 Room Air Laboratory Results Abnormal lab results 11/09/23 11/09/23 11/10/23 Range/Units 16:26 19:40 06:27 WBC 4.71 L (4.8-10.8) K/ul RBC 4.56 L (4.70-6.10) M/uL Hgb 12.7 L (14.0-18.0) g/dl Hct 38.3 L (42.0-52.0) % RDW Coeff of Shantel 14.7 H (11.5-14.5) % BUN/Creatinine Ratio 8.8 L (10-20) Glucose 109 H (70-99(Fasting)) mg/dl POC Glucose 118 H 111 H (70-99) mg/dl 11/10/23 Range/Units 07:12 WBC (4.8-10.8) K/ul RBC (4.70-6.10) M/uL Hgb (14.0-18.0) g/dl Hct (42.0-52.0) % RDW Coeff of Shantel (11.5-14.5) % BUN/Creatinine Ratio (10-20) Glucose (70-99(Fasting)) mg/dl POC Glucose 103 H (70-99) mg/dl PG Care Time/CCT Total # of Minutes Spent Total Time Spent with Patient: Total time spent is greater than 50% in coordination of care (as documented) at patient's floor/unit and/or counseling patient: Coding Level of Care Code 01875 SUB INP/OBS CARE 2/35MIN Diagnoses Syncope R55 S/P coronary artery stent placement Z95.5 Type 2 diabetes mellitus E11.9 Acute hypotension I95.9 PAD (peripheral artery disease) I73.9
[2023-11-10] MEDS: amLODIPine BESYLATE 5 MG TAB PO ONE (13:56)
[2023-11-10] MEDS: carvediloL 12.5 MG TAB PO SCH (16:35)
[2023-11-11 06:43] LABS: Basophils # (auto) 0.03 K/uL (0.00-0.20); Basophils % (auto) 0.6 %; Eosinophils # (auto) 0.06 K/uL (0.00-0.50); Eosinophils % (auto) 1.2 %; Hematocrit (blood only) 37.2 % (42.0-52.0); Hemoglobin 12.6 g/dl (14.0-18.0); Immature Granulocytes # (auto) 0.01 K/uL (0.01-0.20); Immature Granulocytes % (auto) 0.2 %; Lymphocytes # (auto) 1.52 K/uL (1.20-3.40); Lymphocytes % (auto) 31.1 %; Mean Corpuscular Hemoglobin 27.9 pg (25.0-34.0); Mean Corpuscular Hgb Conc 33.9 g/dL (32.0-36.0); Mean Corpuscular Volume 82.3 fL (80.0-100.0); Mean Platelet Volume 11.5 fL (9.4-12.4); Monocytes # (auto) 0.56 K/uL (0.11-0.59); Monocytes % (auto) 11.5 %; Neutrophils # (auto) 2.71 K/uL (1.40-6.50); Neutrophils % (auto) 55.4 %; Platelet Count 178 K/uL (130-400); RDW Coefficient of Variation 14.5 % (11.5-14.5); RDW Standard Deviation 42.9 fL (36.4-46.3); Red Blood Count 4.52 M/uL (4.70-6.10); White Blood Count 4.89 K/ul (4.8-10.8)
[2023-11-11 07:08] LABS: BUN Creatinine Ratio 11.2 (10-20); Calcium 9.2 mg/dl (8.6-10.3); Creatinine Clr Calc Pharmacy 76.6 ml/min; Est GFR (African American) 88.9 ml/min; Est GFR (Non-African American) 76.7 ml/min; Potassium 4.3 mmol/L (3.5-5.1)
[2023-11-11] MEDS: amLODIPine BESYLATE 5 MG TAB PO SCH (08:30)
[2023-11-11 11:58] VITALS: BP 117/71; PULSE 65; RESP 16; TEMP 97.9; O2SAT 97
--- NOTE | 2023-11-11 12:06 | Cardiology Progress Note ---
Date of Service November 11, 2023 Assessment & Plan (1) Labile hypertension: (2) Bradycardia: (3) Acute hypotension: (4) CAD (coronary artery disease), [place] coronary artery: (5) S/P coronary artery stent placement: (6) Monoallelic mutation of SCN5A gene: Plan Blood pressure markedly improved and heart rate acceptable. Would discharge on current vasoactive regimen (amlodipine 10 mg daily or 5 mg twice daily, carvedilol 12.5 mg twice daily) and remain off metoprolol. Follow-up with Dr. Jansen. Admission and Anticipated Discharge Date Admission Date: November 10, 2023 Subjective Feels much better today, was ambulating the hallways without difficulty. Denies any somatic complaints. Specifically noting no chest pain, dyspnea on exertion, palpitations, or lightheadedness. Blood pressure much better controlled, normotensive to minimally hypertensive. Telemetry showed sinus rhythm predominantly in the 50-60 bpm range. Physical Exam Physical Exam: No distress. BP 117/71 mmHg. Pulse 65 bpm and regular. HEENT: unremarkable. Neck: JVP at the clavicle at 90 degrees, no carotid bruits. Lungs: clear. Cardiac: regular rhythm, normal S1-2, no murmur. Abdomen: benign. Extremities: no edema, pulses intact. Neurologic: Tearful affect, answers questions appropriately, grossly nonfocal. Results & Data Vital Signs (Past 12 Hours) Vital Signs Temp Pulse Pulse Resp BP Pulse Ox O2 Del Method 11/11/23 11:57 97.9 F 65 16 117/71 97 Room Air 11/11/23 11:00 63 11/11/23 08:01 98.4 F 73 15 102/68 98 Room Air 11/11/23 04:27 98.2 F 64 17 147/70 H 97 Room Air 11/11/23 00:46 63 PG Care Time/CCT Total # of Minutes Spent Total Time Spent with Patient: Total time spent is greater than 50% in coordination of care (as documented) at patient's floor/unit and/or counseling patient: Coding Level of Care Code 93854 SUB INP/OBS CARE 1/25MIN Diagnoses Labile hypertension R09.89 Bradycardia R00.1 Acute hypotension I95.9 CAD (coronary artery disease), [place] coronary artery I25.10 S/P coronary artery stent placement Z95.5 Monoallelic mutation of SCN5A gene Z15.89
--- NOTE | 2023-11-11 12:09 | Discharge Summary ---
Date of Service November 11, 2023 Admission HPI Per Admitting Provider Tommie is a 73yo M who presented to the ER for dizziness and lightheadedness, and was hypotensive in the ER. Hypotension resolved with IVF and on recheck. "Gilbert" reports he is here for blood pressures issues. Has had labile blood pressure adjusted multiple times. Some frustration as he will be high at the PCP and at home, but then will small adjustments he will have episodes of BP <100 and worsening of orthostasis. With low BP 'felt weird, a little lightheaded'. Had been working at the time. Walking inside from the garage he got very out of breath and lightheaded. Checked his BP by home cuff which was 89/51. Ate and felt better, but then lightheadedness and 'weird feeling' returned this morning and BP was low again, came to the ER for evaluation. Per daughter and granddaughter has had intermittent BP <100 for a few weeks. Pt denies this but isauroy notes he has had low heart rate alerts from his apple watch, and low BPs at home. Denies orthostasis normally, eddy d1 episode of headache and lightheadedness after standing yesterday. Reports when the pressure drops he has a weird feeling in his chest which is not pain or pressure and his BP is low when he checks. BP at bedside now 180/95. Has 8 steps in his home. Normally does OK with these, but lately feels more weak at the top of the steps so he sits down and feels much better after a few minutes. Today when he sat down, then stood back up he field 'weird' and BP was 80-90s. Had genetic testing as part of a volunteer study. No cardiac hx that led to testing, no hx brugada No fevers, chillls, sweats. No n/v/d/c. No recent flu like symptoms. 250mg metoprolol reduced to 200mg TDD, and 5mg amloidpine --> 2.5mg. Medical History: Reviewed Medications: Reviewed Surgical History: Reviewed Family history: Reviewed Allergies: Reviewed Social History: REviewed. +occasional marijuana use. No daily ETOH or tobacco use Code Status: DNR Admission Exam Per Admitting Provider General: A&Ox3. NAD. Cooperative. HEENT: Atraumatic, normocephalic. PERLAA. EOM intact without nystagmus, hearing grossly intact Pulm: CTAB A&P. -wheezes, -rales, -rhonchi. Symmetrical chest rise. No increased work of breathing. No respiratory distress. Cardiac: RRR, soft sm, -rg Radial pulses intact and symmetrical. Abdominal: Nontender, nondistended, soft. BS present. Ext: no edema Principal Diagnosis Syncope due to hypotension Labile hypertension Sinus bradycardia due to medication Discharge Exam General: Awake, conversant Heart: S1, S2/regular rate and rhythm, no murmur rubs or gallops Lungs: Clear to auscultation bilaterally. Normal effort Abdomen: Soft/nontender/nondistended. No hepatosplenomegaly Extremities: No clubbing/cyanosis. No edema Behavior: Appropriate, cooperative Discharge Data Allergies Allergy/AdvReac Type Severity Reaction Status Date / Time amiloride Allergy Nausea Verified 09/19/23 10:43 Consultations 11/08/23 17:39 ED Decision to Admit Stat 11/09/23 21:00 Consult Cardiology Routine Hospital Course (1) Syncope: Presyncope, hypotension Patient has had labile hypo-/hypertension as an outpatient. His metoprolol has been on hold because of bradycardia as well as hypotension/syncope He was seen in consultation by cardiology Switched him from metoprolol to Coreg. Increased the dose of Coreg to 12.5 Increase the dose of amlodipine 10 mg as well Monitored him overnight Blood pressure is well-controlled today Heart rate is not shooting up when he walks He is not feeling dizzy or lightheaded when he walks. Cardiology cleared him for discharge on this current regimen of amlodipine 10 mg and Coreg 12.5 mg twice daily (2) S/P coronary artery stent placement: Cardiac catheterization 2018: PCI to mid LAD with overlapping JAIME Continue aspirin, statin, Plavix Switch from metoprolol to Coreg (3) Type 2 diabetes mellitus: Switch to basal bolus insulin, DM 2 diet (4) Acute hypotension: (5) PAD (peripheral artery disease): No acute change Plan Discharge to home today Total Time Total Time Spent Total Time Spent (In Minutes): 35 Discharge Plan Discharge Items Patient Disposition: Home - Self-Care Reason For Visit: HYPOTENSION, BRADYCARDIA Discharge Diagnosis: Syncope due to hypotension Labile hypertension Sinus bradycardia due to medication Activity: Resume your previous activity Non-emergency contact: Primary Care Provider Call non-emergency contact if: you have any medication questions and your symptoms worsen Follow-up/Referrals: Edy Jansen MD [Physician] - Gertrude Alvarez MD [Primary Care Provider] - Diet: Carb Consistent or DM2 and Heart Healthy Addtl Attending Provider Instructions: Advised to follow-up with PCP in 1 week Advised to follow-up with cardiology in 1 week Pending Studies at Discharge: No Stand-Alone Forms: My [facility] Medications and DC Order Prescriptions: New amlodipine [Norvasc] 5 mg Tablet 10 mg PO DAILY 30 Days Qty: 60 0RF carvedilol 12.5 mg Tablet 12.5 mg PO BIDM 30 Days Qty: 60 0RF Continued clopidogrel 75 mg tablet 75 mg PO QAM Qty: 90 3RF nitroglycerin 0.4 mg tablet, sublingual 0.4 mg SL Q5M PRN (Reason: chest pain) Qty: 25 3RF atorvastatin 80 mg tablet 80 mg PO DAILY Qty: 90 3RF aspirin 81 mg tablet 81 mg PO DAILY finasteride 5 mg tablet 5 mg PO DAILY tamsulosin 0.4 mg capsule 0.4 mg PO HS metformin 500 mg tablet 500 mg PO BID Qty: 180 cholecalciferol (vitamin D3) 2,000 unit tablet 2,000 units PO DAILY cyanocobalamin (vitamin B-12) 500 mcg tablet 500 mcg PO DAILY pyridoxine (vitamin B6) 100 mg tablet 100 mg PO DAILY potassium citrate 10 mEq (1,080 mg) tablet extended release 10 meq PO DAILY Qty: 60 sildenafil 100 mg tablet 100 mg PO DAILY PRN (Reason: Erectile Dysfunction) gabapentin 100 mg capsule 200 mg PO TID Discontinued amlodipine 2.5 mg tablet 5 mg PO DAILY Qty: 90 3RF metoprolol tartrate 100 mg tablet 100 mg PO BID Qty: 180 3RF Discharge Orders: Discharge Order (Routine); Ordered 11/11/23 Ordered By: Curt Castillo Admission Data Admit Date/Time: 11/10/23 13:29 Attending Provider: Curt Castillo Admit Provider: Khai Baltazar Primary Care Provider: Gertrude Alvarez Other Providers: Khai Baltazar; Remy Craig
== END 2023-11-11 13:46 | disposition home or self-care (01) | DRG 312 ==
LOC: SUATTDRO → ED 14:13 → 2E 14:13 → SUATTDRO 18:59 → 2E 20:22